=== PATIENT | male | born 1985 | race Caucasian/White ===

== ENCOUNTER 2017-03-29 00:51 | Emergency (ER) | payer OTHER ==
[2017-03-29 01:04] VITALS: RESP 18
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
--- NOTE | 2017-03-29 01:49 | XR ---
EXAMINATION TYPE: XR forearm LT DATE OF EXAM: 03/29/2017 COMPARISON: NONE HISTORY: Pain TECHNIQUE: 2 views FINDINGS: I see no fracture nor dislocation. Wrist joint and elbow joint appear intact. There are no pathologic calcifications. IMPRESSION: Negative left forearm exam.
[2017-03-29 02:15] VITALS: BP 150/80; PULSE 80; TEMP 98
== END 2017-03-29 02:15 | disposition home or self-care (01) ==
LOC: EC 00:51
DX: S50.12XA Contusion of left forearm, initial encounter (principal); X50.9XXA Other and unspecified overexertion or strenuous movements or postures, initial encounter; Y93.B2 Activity, push-ups, pull-ups, sit-ups; Y99.0 Civilian activity done for income or pay
CPT/HCPCS: 99283